=== PATIENT | male | born 1975 | race Caucasian/White ===

== ENCOUNTER 2017-10-06 16:49 | Emergency (ER) | payer OTHER, SELFPAY ==
[2017-10-06 16:50] VITALS: BP 160/85; PULSE 80; RESP 18; TEMP 36.9; O2SAT 98; BMI 30.1
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
--- NOTE | 2017-10-06 18:33 | ED.DEP ---
ED Disposition - Plan for ED Patient: Disposition: Home or Assisted Living Chief Complaint: Lower Extremity Injury Instructions: ED Sprain Ankle W X Ray Referrals: [facility],Out of [Primary Care Provider] - 1 Week if not improving Additional Instructions: Ice and elevate. Motrin for pain and swelling. Increase activity as tolerated. If not improving in 1-2 weeks need to be further evaluated. At this time your x-ray showed no signs of any fractures.
[2017-10-06 18:47] VITALS: BP 140/106; PULSE 81; RESP 16; O2SAT 94
== END 2017-10-06 18:49 | disposition home or self-care (01) ==
PROVIDERS: Emergency Provider Emergency Medicine
DX: S93.401A Sprain of unspecified ligament of right ankle, initial encounter (principal); S80.211A Abrasion, right knee, initial encounter; S40.211A Abrasion of right shoulder, initial encounter; V19.9XXA Pedal cyclist (driver) (passenger) injured in unspecified traffic accident, initial encounter; Y92.410 Unspecified street and highway as the place of occurrence of the external cause; Y93.55 Activity, bike riding
CPT/HCPCS: 73610; 99283